=== PATIENT | female | born 1940 | race Caucasian/White ===

== ENCOUNTER 2017-11-20 10:22 | Emergency (ER) | payer MEDICARE ==
[2017-11-20 11:37] LABS: RAPID GROUP A STREP NEGATIVE (NEGATIVE)
== END 2017-11-20 12:15 | disposition home or self-care (01) ==
LOC: EDH 10:22
DX: J01.90 Acute sinusitis, unspecified (principal); I10 Essential (primary) hypertension; E78.5 Hyperlipidemia, unspecified; Z88.2 Allergy status to sulfonamides; Z88.6 Allergy status to analgesic agent
CPT/HCPCS: 87804; 87880

== ENCOUNTER → 2023-04-04 | Outpatient (CLI) | payer MEDICARE ==
[2023-04-04 12:27] LABS: T4 (THYROXINE) 5.8 ug/dL (4.7-13.3); THYROID STIMULATING HORMONE 4.12 uIU/mL (0.36-3.74)
== END | disposition home or self-care (01) ==
LOC: LAB 09:14
PROVIDERS: ATTEND Physician Assistant
DX: I10 Essential (primary) hypertension (principal); R00.1 Bradycardia, unspecified
CPT/HCPCS: 36415; 84436; 84443

== ENCOUNTER → 2023-05-10 | Outpatient (CLI) | payer MEDICARE ==
[~2023-05-10] MED LIST: ACET-2041 PO; AMLO-257 PO; CALC-1209 PO; CELE-84 PO; LISI20TA24 PO; MULT-1367 PO; SIMV-43 PO; SOLI10TA7 PO; TRAM50TA4 PO
== END | disposition home or self-care (01) ==
LOC: SHCH 11:23
PROVIDERS: ATTEND Internal Medicine Cardiovascular Disease
DX: I07.1 Rheumatic tricuspid insufficiency (principal); R00.1 Bradycardia, unspecified
CPT/HCPCS: 93306

== ENCOUNTER 2025-06-30 09:15 | Day surgery (SDC) | payer MEDICARE ==
[2025-06-30] VITALS (16 sets, daily range): BP systolic 127–152; BP diastolic 63–81; PULSE 64–75; RESP 11–17; TEMP 97–98.8
[~2025-06-30] VITALS: Ht 170.2 cm; Wt 55.3 kg
[~2025-06-30 09:15] MED LIST changes: -ACET-2041 PO; -AMLO-257 PO; +CALC-1106 PO; -CALC-1209 PO; -CELE-84 PO; +DILT180C77 PO; +IOHEXOL-350 50ML VIAL IV ONE; -LISI20TA24 PO; +LISI30TA4 PO; +SENN-279 PO; -SOLI10TA7 PO; -TRAM50TA4 PO
[2025-06-30] MEDS: 0.9%NACL 1000ML 1,000 ML IV ONE (10:08)
[2025-06-30] MEDS ORDERED: INDOMETHACIN 100 MG SUPP.RECT RC ONE (10:30)
[2025-06-30] MEDS ORDERED: SUCCINYLCHOLINE CHLORIDE 20 MG/ML 10 ML VIAL ONE (11:45)
[2025-06-30] MEDS ORDERED: LIDOCAINE PF 100MG/5ML (2%) SYRINGE 5ML ONE (11:46)
--- NOTE | 2025-07-03 10:00 | HMCIMG ---
X-RAY BILIARY DUCT ENDOSCOPY HISTORY: CBD OBST,Pancreatic CA TECHNIQUE: X-RAY BILIARY DUCT ENDOSCOPY FINDINGS/IMPRESSION: Fluoroscopic image/s obtained for procedure documentation. Please see operative report for more details. Fluoroscopy time 1.8 minutes
== END 2025-06-30 14:56 | disposition home or self-care (01) ==
LOC: DAH 09:15 → ENDO 09:15
PROVIDERS: ATTEND Internal Medicine Gastroenterology
DX: R17 Unspecified jaundice (principal); K83.1 Obstruction of bile duct; C25.0 Malignant neoplasm of head of pancreas; I10 Essential (primary) hypertension; E78.5 Hyperlipidemia, unspecified; Z98.890 Other specified postprocedural states; Z79.899 Other long term (current) drug therapy
CPT/HCPCS: 43276; 74328; 43264; J3010; J0330; J7030; J2003; J2704; Q9967; C1876; A4215; A4657 ×2; C1773; 43274; J3490